=== PATIENT | male | born 1945 | race Caucasian/White ===

== ENCOUNTER → 2019-02-19 | Outpatient (CLI) | payer MEDICARE ==
[~2019-02-19] MED LIST: VALS160T29 PO
== END | disposition home or self-care (01) ==
LOC: RAH 11:40
PROVIDERS: ATTEND Physical Medicine & Rehabilitation
DX: M17.11 Unilateral primary osteoarthritis, right knee (principal)
CPT/HCPCS: 73562

== ENCOUNTER → 2019-06-18 | Outpatient (CLI) | payer MEDICARE ==
[2019-06-18 14:48] LABS: BASOPHILS % (AUTO) 0.6 % (0.0-5.0); EOSINOPHILS % (AUTO) 4.3 % (0.0-8.0); HEMATOCRIT 45.3 % (42-54); LYMPHOCYTES % (AUTO) 29.8 % (21.0-51.0); MEAN CORPUSCULAR HEMOGLOBIN 30.9 pg (27.0-33.0); MEAN CORPUSCULAR HGB CONC 33.1 g/dL (32.0-36.0); MEAN CORPUSCULAR VOLUME 93.4 fL (79-99); MONOCYTES % (AUTO) 5.5 % (3.0-13.0); NEUTROPHILS % (AUTO) 59.6 % (40.0-77.0); PLATELET COUNT (AUTO) 154 K/uL (130-400); RED BLOOD CELL COUNT(AUTO) 4.85 MIL/uL (4.50-6.20); RED CELL DISTRIBUTION WIDTH 13.1 % (11.0-15.5); WHITE BLOOD COUNT (AUTO) 4.9 K/uL (4.8-10.8)
[2019-06-18 14:56] LABS: HEMOGLOBIN A1C 5.4 % (4.0-6.0)
[2019-06-18 15:02] LABS: ALBUMIN 3.4 g/dL (3.5-5.0); BILIRUBIN,TOTAL 0.7 mg/dL (0.2-1.0); CREATININE 1.2 mg/dL (0.5-1.5); POTASSIUM 3.8 mmol/L (3.5-5.1); TOTAL PROTEIN, SERUM 6.5 g/dL (6.0-8.3)
[2019-06-18 15:10] LABS: % IRON SATURATION 17.7 % (30-44)
== END | disposition home or self-care (01) ==
LOC: RAH 13:58
PROVIDERS: ATTEND Orthopaedic Surgery
DX: T84.398A Other mechanical complication of other bone devices, implants and grafts, initial encounter (principal); Z01.818 Encounter for other preprocedural examination
CPT/HCPCS: 36415; 71045; 80053; 82306; 83036; 83540; 83550; 85025

== ENCOUNTER → 2019-08-04 | Outpatient (CLI) | payer MEDICARE ==
[~2019-08-04] VITALS: Ht 180.3 cm; Wt 90.2 kg
[~2019-08-04] MED LIST changes: +CEFAZOLIN SODIUM 1 GM VIAL IVP SCH
[2019-08-04 15:41] LABS: BASOPHILS % (AUTO) 0.7 % (0.0-5.0); HEMATOCRIT 44.2 % (42-54); LYMPHOCYTES % (AUTO) 32.5 % (21.0-51.0); MEAN CORPUSCULAR HEMOGLOBIN 31.3 pg (27.0-33.0); MEAN CORPUSCULAR VOLUME 94.8 fL (79-99); MONOCYTES % (AUTO) 7.4 % (3.0-13.0); NEUTROPHILS % (AUTO) 56.2 % (40.0-77.0); PLATELET COUNT (AUTO) 165 K/uL (130-400); RED BLOOD CELL COUNT(AUTO) 4.66 MIL/uL (4.50-6.20); RED CELL DISTRIBUTION WIDTH 13.4 % (11.0-15.5); WHITE BLOOD COUNT (AUTO) 4.3 K/uL (4.8-10.8)
[2019-08-04 15:49] LABS: CREATININE 1.1 mg/dL (0.5-1.5); POTASSIUM 3.8 mmol/L (3.5-5.1)
[2019-08-04 15:51] LABS: INR 0.94 (0.85-1.15); PARTIAL THROMBOPLASTIN TIME 26.7 SEC (26.3-35.5); PROTHROMBIN TIME 10.2 SEC (9.6-11.6)
[2019-08-09 11:35] VITALS: BP 125/71
== END | disposition home or self-care (01) ==
LOC: EDSTATUS 12:00 → LAB 15:06 → EDSTATUS 08-10 12:00
PROVIDERS: ATTEND Orthopaedic Surgery
DX: Z03.818 Encounter for observation for suspected exposure to other biological agents ruled out (principal); T84.398A Other mechanical complication of other bone devices, implants and grafts, initial encounter; X58.XXXA Exposure to other specified factors, initial encounter; Y93.89 Activity, other specified; Y92.89 Other specified places as the place of occurrence of the external cause; Y99.8 Other external cause status
CPT/HCPCS: 36415; 80048; 85025; 85610; 85730; 87641; A6260; U0003

== ENCOUNTER 2019-10-27 12:00 | Inpatient (IN) | payer MEDICARE ==
[~2019-10-27] VITALS: Ht 177.8 cm; Wt 88.7 kg
[2019-10-27 12:49] LABS: EOSINOPHILS % (AUTO) 3.4 % (0.0-8.0); HEMATOCRIT 46.7 % (42-54); LYMPHOCYTES % (AUTO) 37.3 % (21.0-51.0); MEAN CORPUSCULAR HGB CONC 32.5 g/dL (32.0-36.0); MEAN CORPUSCULAR VOLUME 95.3 fL (79-99); MONOCYTES % (AUTO) 7.9 % (3.0-13.0); NEUTROPHILS % (AUTO) 50.2 % (40.0-77.0); PLATELET COUNT (AUTO) 181 K/uL (130-400); RED CELL DISTRIBUTION WIDTH 12.8 % (11.0-15.5); WHITE BLOOD COUNT (AUTO) 4.2 K/uL (4.8-10.8)
[2019-10-27 13:00] LABS: POTASSIUM 4.1 mmol/L (3.5-5.1)
[2019-10-27 13:01] LABS: INR 0.93 (0.85-1.15); PROTHROMBIN TIME 10.1 SEC (9.6-11.6)
[2019-10-31 17:26] VITALS: BP 190/79
[2019-11-03] MEDS ORDERED: LATA2.5D2 OU (17:51)
[2019-11-03] MEDS ORDERED: FINA5TAB41 PO (17:51)
[2019-11-04] VITALS (18 sets, daily range): BP systolic 128–160; BP diastolic 70–93
[2019-11-04] MEDS ORDERED: LACTATED RINGERS 1000ML 1,000 ML IV ONE (07:57)
[2019-11-04] MEDS: CEFAZOLIN SODIUM 1 GM VIAL ONE ×2 (08:00→11:30)
[2019-11-04] MEDS ORDERED: LIDOCAINE PF 2% 5ML ABBOJECT ONE (10:15)
[2019-11-04] MEDS ORDERED: SUCCINYLCHOLINE CHLORIDE 20 MG/ML 10 ML VIAL ONE (10:15)
[2019-11-04] MEDS ORDERED: DEXAMETHASONE SOD PHOSPHATE 10MG/ML 1ML VIAL ONE (10:16)
[2019-11-04] MEDS ORDERED: FENTANYL CITRATE PF 50 MCG/1 ML 2ML VIAL ONE (10:17)
[2019-11-04] MEDS ORDERED: MIDAZOLAM HCL 1 MG/ML 2ML VIAL ONE (10:17)
[2019-11-04] MEDS ORDERED: NEOSTIGMINE 5MG/5ML SYR IV ONE (10:17)
[2019-11-04] MEDS ORDERED: PROPOFOL 10 MG/ML 20ML VIAL IV ONE (10:17)
[2019-11-04] MEDS ORDERED: ONDANSETRON HCL 4 MG/2 ML VIAL ONE (10:17)
[2019-11-04] MEDS ORDERED: GLYCOPYRROLATE 1 MG/5 ML SYRINGE ONE (10:17)
[2019-11-04] MEDS ORDERED: ROCURONIUM 10MG/1ML SYR 10 MG/ML ML ONE (10:17)
[2019-11-04] MEDS ORDERED: TRANEXAMIC ACID 1000MG/10ML ONE (10:31)
[2019-11-04] MEDS ORDERED: EPHEDRINE SULFATE 50 MG/ML AMPULE ONE (11:13)
[2019-11-04] MEDS ORDERED: PHENYLEPHRINE HCL 10 MG/ML 1ML VIAL IV ONE (12:24)
[2019-11-04] MEDS ORDERED: KETOROLAC TROMETHAMINE 30MG/ML ONE (13:09)
--- NOTE | 2019-11-04 14:35 | NUR ---
POST OP RECEIVED PT POST AND REPORT FROM AUGUSTINE RN FROM PACU. PT IN NO DISTRESS. PT HAS DRESSING CLEAN AND DRY WITH SLING ON. PT HAS SLIGHT BRUISING AND SWELLING. PT ORIENTED TO ROOM AND CALL LIGHT. WILL CONTINUE TO MONITOR
--- NOTE | 2019-11-04 15:35 | NUR ---
DISCHARGE PT AND GIVEN D/C INSTRUCTIONS. BOTH VOICED UNDERSTANDING. PT GIVEN ICE PACK. PT TAKEN OUT VIA W/C IN NO DISTRESS WITH SLING IN PLACE AND GOOD CIRCULATION TO RT HAND.
--- NOTE | 2019-11-04 16:55 | NUR ---
DC PLAN CALLED SPOUSE. PER SPOUSE THEY ARE ALREADY HOME. DOING GREAT. HAD A GREAT EXPERIENCE. NO NEEDS VERBALIZED BY SPOUSE OR NURSING. Addendum: 11/04/19 at 1657 by JALEESA CASAS RN CM Amended: Links added.
[2019-11-04] MEDS ORDERED: FINASTERIDE 5 MG TABLET PO SCH (21:00)
[2019-11-04] MEDS ORDERED: LATANOPROST 2.5 ML DROPS OU SCH (21:00)
== END 2019-11-04 17:00 | disposition home or self-care (01) | DRG 483 ==
LOC: EDSTATUS 12:00 → DAHIP 11-04 07:28 → 3AH 11-04 14:04 → DAHIP 11-04 15:44
PROVIDERS: ADMIT Orthopaedic Surgery; ATTEND Orthopaedic Surgery
PROC: 0RRJ00Z Replacement of Right Shoulder Joint with Reverse Ball and Socket Synthetic Substitute, Open Approach (ICD-10-PCS; principal; 2019-11-04 11:40)
DX: M19.011 Primary osteoarthritis, right shoulder (principal); Z20.828 Contact with and (suspected) exposure to other viral communicable diseases; Z96.652 Presence of left artificial knee joint; M75.101 Unspecified rotator cuff tear or rupture of right shoulder, not specified as traumatic; E66.3 Overweight; Z68.28 Body mass index [BMI] 28.0-28.9, adult
CPT/HCPCS: 36415; 73030; 80048; 85025; 85610; 87641; A4565; G0378; J0330; J0690; J1100; J1885; J2001; J2250; J2370; J2405; J2704; J2710; J3010; J3490; J7030; J7120; U0003

== ENCOUNTER → 2020-06-30 | Outpatient (CLI) | payer MEDICARE ==
[~2020-06-30] MED LIST changes: -CEFAZOLIN SODIUM 1 GM VIAL IVP SCH; +FINA5TAB41 PO; +LATA2.5D14 OU; -VALS160T29 PO
== END | disposition home or self-care (01) ==
LOC: RAH 13:13
PROVIDERS: ATTEND Urology
DX: C61 Malignant neoplasm of prostate (principal)
CPT/HCPCS: 78306; A9503

== ENCOUNTER 2021-05-08 08:02 | Observation (INO) | payer MEDICARE ==
[2021-05-02 10:04] LABS: EOSINOPHILS % (AUTO) 4.5 % (0.0-8.0); HEMATOCRIT 45.8 % (42-54); LYMPHOCYTES % (AUTO) 33.1 % (21.0-51.0); MEAN CORPUSCULAR HEMOGLOBIN 30.5 pg (27.0-33.0); MEAN CORPUSCULAR HGB CONC 32.8 g/dL (32.0-36.0); MEAN CORPUSCULAR VOLUME 93.3 fL (79-99); NEUTROPHILS % (AUTO) 51.1 % (40.0-77.0); PLATELET COUNT (AUTO) 167 K/uL (130-400); RED BLOOD CELL COUNT(AUTO) 4.91 MIL/uL (4.50-6.20); WHITE BLOOD COUNT (AUTO) 3.1 K/uL (4.8-10.8)
[2021-05-02 10:16] LABS: CREATININE 0.9 mg/dL (0.5-1.5); POTASSIUM 5.1 mmol/L (3.5-5.1)
[2021-05-02 10:19] LABS: INR 0.98 (0.85-1.15); PROTHROMBIN TIME 10.7 SEC (9.6-11.6)
[2021-05-02 10:20] LABS: PARTIAL THROMBOPLASTIN TIME 28.2 SEC (26.3-35.5)
[~2021-05-08] VITALS: Ht 182.9 cm; Wt 86.2 kg
[2021-05-08] VITALS (17 sets, daily range): BP systolic 134–169; BP diastolic 77–98
[2021-05-08] MEDS: CEFAZOLIN SODIUM 1 GM VIAL IVP SCH ×4 (06:00→19:35)
[2021-05-08] MEDS ORDERED: LACTATED RINGERS 1000ML 1,000 ML IV ONE (08:24)
[2021-05-08] MEDS ORDERED: TRANEXAMIC ACID 1000MG/10ML ONE (12:22)
[2021-05-08] MEDS ORDERED: PROPOFOL 10 MG/ML 20ML VIAL IV ONE (13:40)
[2021-05-08] MEDS ORDERED: SUCCINYLCHOLINE CHLORIDE 20 MG/ML 10 ML VIAL ONE (13:40)
[2021-05-08] MEDS ORDERED: LIDOCAINE PF 100MG/5ML (2%) SYRINGE 5ML ONE (13:40)
[2021-05-08] MEDS ORDERED: FENTANYL CITRATE PF 50 MCG/1 ML 2ML VIAL ONE (13:41)
[2021-05-08] MEDS ORDERED: ROCURONIUM 10MG/1ML SYR 10 MG/ML ML ONE (13:41)
[2021-05-08] MEDS ORDERED: MIDAZOLAM HCL 1 MG/ML 2ML VIAL ONE (13:41)
[2021-05-08] MEDS ORDERED: DEXAMETHASONE SOD PHOSPHATE 10MG/ML 1ML VIAL ONE (13:55)
[2021-05-08] MEDS ORDERED: ROPIVACAINE 0.5% 5MG/ML 30ML IJ ONE (13:56)
[2021-05-08] MEDS ORDERED: GLYCOPYRROLATE 1 MG/5 ML SYRINGE ONE ×2 (15:17→16:25)
[2021-05-08] MEDS ORDERED: EPHEDRINE SULFATE 50 MG/ML AMPULE ONE (16:03)
[2021-05-08] MEDS ORDERED: NEOSTIGMINE 5MG/5ML SYR IV ONE (16:25)
[2021-05-08] MEDS ORDERED: HYDROCODONE/ACETAMINOPHEN 5/325 MG TAB PO PRN (16:30)
[2021-05-08] MEDS ORDERED: HYDROCODONE/ACETAMINOPHEN 10/325 MG TAB PO PRN (16:30)
[2021-05-08] MEDS: ACETAMINOPHEN 500 MG TABLET PO SCH (16:30)
[2021-05-08] MEDS ORDERED: ONDANSETRON 4MG INJ IVP PRN (16:30)
[2021-05-08] MEDS ORDERED: 0.9%NACL 1000ML 1,000 ML IV SCH (16:30)
[2021-05-08] MEDS ORDERED: MORPHINE 4 MG SYG IVP PRN (16:30)
[2021-05-08] MEDS: TRAMADOL HCL 50 MG TABLET PO SCH (18:00)
[2021-05-08] MEDS ORDERED: FINASTERIDE 5 MG TABLET ONE (19:23)
[2021-05-08] MEDS ORDERED: FAMOTIDINE 20MG TAB ONE (19:23)
[2021-05-08] MEDS ORDERED: CELECOXIB 200 MG CAP ONE (19:23)
[2021-05-08] MEDS: CELECOXIB 200 MG CAP PO SCH (19:34)
[2021-05-08] MEDS: FAMOTIDINE 20MG TAB PO SCH (19:34)
[2021-05-08] MEDS ORDERED: FINASTERIDE 5 MG TABLET PO SCH (21:00)
[2021-05-08] MEDS ORDERED: LATANOPROST 2.5 ML DROPS OU SCH (21:00)
[2021-05-09] VITALS: BP 135/78
[2021-05-09] MEDS: TRAMADOL HCL 50 MG TABLET PO SCH ×3 (01:11→13:05)
[2021-05-09] MEDS: ACETAMINOPHEN 500 MG TABLET PO SCH ×2 (01:11→08:36)
[2021-05-09] MEDS: CEFAZOLIN SODIUM 1 GM VIAL IVP SCH (03:28)
[2021-05-09 04:23] VITALS: BP 128/78
[2021-05-09 04:31] LABS: HEMATOCRIT 40.2 % (42-54); MEAN CORPUSCULAR HEMOGLOBIN 31.3 pg (27.0-33.0); MEAN CORPUSCULAR HGB CONC 33.6 g/dL (32.0-36.0); MEAN CORPUSCULAR VOLUME 93.3 fL (79-99); RED BLOOD CELL COUNT(AUTO) 4.31 MIL/uL (4.50-6.20); WHITE BLOOD COUNT (AUTO) 6.5 K/uL (4.8-10.8)
[2021-05-09 05:02] LABS: CREATININE 0.9 mg/dL (0.5-1.5); POTASSIUM 3.9 mmol/L (3.5-5.1)
[2021-05-09 08:01] VITALS: BP 122/73
[2021-05-09] MEDS: FAMOTIDINE 20MG TAB PO SCH (08:33)
[2021-05-09] MEDS: CELECOXIB 200 MG CAP PO SCH (08:33)
[2021-05-09] MEDS ORDERED: ASPIRIN 81 MG EC TAB PO SCH (09:00)
[2021-05-09] MEDS ORDERED: POLYETHYLENE GLYCOL 3350 17 GM POWD.PACK PO SCH (09:00)
[2021-05-09 11:17] VITALS: BP 125/71
[2021-05-11] MEDS ORDERED: BISACODYL 10 MG SUPP.RECT RC PRN (16:30)
== END 2021-05-09 15:12 | disposition home or self-care (01) ==
LOC: DAH 08:02 → DAHIP 08:03 → 4AH 18:00
PROVIDERS: ADMIT Orthopaedic Surgery; ATTEND Orthopaedic Surgery
DX: M19.012 Primary osteoarthritis, left shoulder (principal); Z20.822 Contact with and (suspected) exposure to COVID-19; M75.102 Unspecified rotator cuff tear or rupture of left shoulder, not specified as traumatic; E66.9 Obesity, unspecified; Z96.611 Presence of right artificial shoulder joint; Z79.899 Other long term (current) drug therapy
CPT/HCPCS: 23472; 36415 ×2; 64415; 73030 ×2; 76942; 80048 ×2; 85025; 85027; 85610; 85730; 87635; 87641; 88304; 88311; 96374; 96376; 97161; 97530; A4215; A4221; A4222; A4223; A4565; A4600; A4649; A4663; A5120; A6260; C1776; C9803; G0378 ×21; J0330; J0690 ×3; J1100; J2001; J2250; J2704; J2710; J2795; J3010; J3490 ×4; J7120